=== PATIENT | female | born 1975 | race African-American/Black ===

== ENCOUNTER 2016-04-08 20:40 | Emergency (ER) | payer MEDICAID, OTHER ==
[~2016-04-08] VITALS: Ht 175.3 cm; Wt 129.0 kg
[~2016-04-08 20:40] MED LIST: DOXY100C PO; ENAL5TAB98 PO; GLUCTAB PO; HYDR25TA5 PO; IBUP800T23 PO; LOSA100T PO; POTA10TA8 PO; ULTR50TA5 PO
[2016-04-08 20:41] VITALS: BP 181/104; PULSE 99; RESP 18; TEMP 98.3; O2SAT 100
[2016-04-08 21:11] VITALS: BP 195/116; PULSE 93; RESP 20; O2SAT 98
[2016-04-08 21:14] VITALS: O2SAT 97
[2016-04-08] MEDS ORDERED: SODIUM CHLORIDE 0.9% FLUSH 5 ML FLUSH IVF PRN (21:15)
[2016-04-08 21:41] LABS: AUTOMATED NEUTROPHIL # 3.3 TH/MM3 (1.8-7.7); BASOPHIL % 0.2 % (0.0-2.0); EOSINOPHIL # 0.1 TH/MM3 (0-0.4); EOSINOPHIL % 1.4 % (0.0-4.0); HEMATOCRIT 39.2 % (35.0-46.0); HEMO FLAGS DIFF FINAL; LYMPH % 37.7 % (9.0-44.0); LYMPHOCYTE # 2.4 TH/MM3 (1.0-4.8); MEAN CELL VOLUME 81.6 FL (80.0-100.0); MEAN CORPUSCULAR HGB CONC 34.3 % (32.0-36.0); MONO % 9.3 % (0.0-8.0); NEUT % 51.4 % (16.0-70.0); PLATELET COUNT 239 TH/MM3 (150-450); RED BLOOD COUNT 4.81 MIL/MM3 (4.00-5.30); RED CELL DISTRIBUTION WIDTH 15.6 % (11.6-17.2); WHITE BLOOD COUNT 6.5 TH/MM3 (4.0-11.0)
[2016-04-08 21:42] LABS: BACTERIA, URINE RARE /hpf; BLOOD, URINE NEG (NEG); COMMENT (UR) CULT NOT INDICATED; CULTURE IF INDICATED CULT NOT INDICATED; GLUCOSE,URINE 1000 mg/dL (NEG); KETONE, URINE NEG (NEG); MUCUS URINE FEW /lpf (OCC); NITRITE,URINE NEG (NEG); SQUAMOUS EPITHELIAL CELL URINE <1 /hpf (0-5); URINE COLOR LIGHT-YELLOW (YELLW/STRAW)
[2016-04-08] MEDS ORDERED: MORPHINE SULFATE 4 MG/ML INJ IV PUSH ONE (21:45)
[2016-04-08] MEDS ORDERED: ONDANSETRON HCL 4 MG/2 ML VIAL IVP ONE (21:45)
--- NOTE | 2016-04-08 21:58 | PD ---
HPI Chief Complaint: Abdominal Pain Time Seen by Provider: 21:13 Travel History International Travel<30 days: No Contact w/Intl Traveler<30days: No Traveled to known affect area: No History of Present Illness HPI Morbidly obese 40-year-old female here with complaints of abdominal pain. Patient has had approximately one week of intermittent abdominal pain. States that this is moderate, across the upper abdomen and radiates into the flank. She denies any urinary symptoms, stating she's had previous UTIs and this does not feel similar. She notes nausea, but no vomiting. Bowel movements have been regular. History of appendicitis, status post appendectomy. Denies any history of gastritis, hepatobiliary pathology. She took 3 home test today that were negative and does not play she could be . No abnormal vaginal bleeding or discharge. Symptoms worse with movement. PFSH Past Medical History Anemia: Yes Blood Disorders: No Cancer: No Cardiovascular Problems: Yes (HTN) High Cholesterol: Yes Diabetes: Yes Patient Takes Glucophage: Yes Diminished Hearing: No Endocrine: No Gastrointestinal Disorders: No Genitourinary: No Hypertension: Yes Immune Disorder: No Implanted Vascular Access Dvce: No Musculoskeletal: No Neurologic: No Psychiatric: No Reproductive: No Respiratory: No Immunizations Current: Yes Sickle Cell Disease: Yes (trait) Triglycerides - High: Yes Tetanus Vaccination: < 5 Years Influenza Vaccination: No ?: Not LMP: 03/04/16 : 4 Para: 3 Miscarriage: 1 Tubal Ligation: Yes Past Surgical History Abdominal Surgery: No Appendectomy: Yes Cardiac Surgery: No Ear Surgery: No Endocrine Surgery: No Eye Surgery: No Genitourinary Surgery: No Gynecologic Surgery: Yes (TUBAL) Oral Surgery: No Thoracic Surgery: No Social History Alcohol Use: No Tobacco Use: No Substance Use: No Allergies-Medications (Allergen,Severity, Reaction): Coded Allergies: Cipro (Verified Allergy, Intermediate, Itching, 04/08/16) Reported Meds & Prescriptions Reported Meds & Active Scripts Active Ultram (Tramadol HCl) 50 Mg Tab 50 Mg PO Q4H PRN Reported Potassium Chloride CR (Potassium Chloride) 10 Meq Tab 10 Meq PO BID Losartan (Losartan Potassium) 100 Mg Tab 100 Mg PO DAILY Hydrochlorothiazide 25 Mg Tab 25 Mg PO DAILY Vasotec (Enalapril Maleate) 5 Mg Tab 5 Mg PO DAILY Glucophage XR (Metformin HCl) 500 Mg William 1,000 Mg PO BID With evening meal Review of Systems Except as stated in HPI: all other systems reviewed are Neg Physical Exam Narrative GENERAL: Morbidly obese female in no acute distress SKIN: Warm and dry. HEAD: Normocephalic. EYES: No scleral icterus. No injection or drainage. ENT: Mucous membranes pink and moist. NECK: Supple CARDIOVASCULAR: Regular rate and rhythm. No murmur appreciated. RESPIRATORY: No accessory muscle use. Clear to auscultation. Breath sounds equal bilaterally. GASTROINTESTINAL: Abdomen soft and morbidly obese. Right upper quadrant and epigastric tenderness to palpation without rebound or guarding. No CVA tenderness. MUSCULOSKELETAL: Normal gait NEUROLOGICAL: Awake and alert. Normal speech. PSYCHIATRIC: Appropriate mood and affect; insight and judgment normal. Data Data Last Documented VS Vital Signs Date Time Temp Pulse Resp B/P Pulse Ox O2 Delivery O2 Flow Rate FiO2 04/08/16 21:14 97 Room Air 04/08/16 21:11 20 04/08/16 21:11 93 195/116 04/08/16 20:41 98.3 Orders Complete Blood Count With Diff (04/08/16 21:08) Comprehensive Metabolic Panel (04/08/16 21:08) Lipase (04/08/16 21:08) Urinalysis - C+S If Indicated (04/08/16 21:08) Iv Access Insert/Monitor (04/08/16 21:08) Ecg Monitoring (04/08/16 21:08) Oximetry (04/08/16 21:08) Sodium Chloride 0.9% Flush (Ns Flush) (04/08/16 21:15) Ed Urine Pregnancytest Poc (04/08/16 21:08) Ct Abd/Pel W/O Iv Contrast (04/08/16 21:35) Morphine Inj (Morphine Inj) (04/08/16 21:45) Ondansetron Inj (Zofran Inj) (04/08/16 21:45) Labs Laboratory Tests Test 04/08/16 21:20 White Blood Count 6.5 TH/MM3 Red Blood Count 4.81 MIL/MM3 Hemoglobin 13.5 GM/DL Hematocrit 39.2 % Mean Corpuscular Volume 81.6 FL Mean Corpuscular Hemoglobin 28.0 PG Mean Corpuscular Hemoglobin 34.3 % Concent Red Cell Distribution Width 15.6 % Platelet Count 239 TH/MM3 Mean Platelet Volume 8.7 FL Neutrophils (%) (Auto) 51.4 % Lymphocytes (%) (Auto) 37.7 % Monocytes (%) (Auto) 9.3 % Eosinophils (%) (Auto) 1.4 % Basophils (%) (Auto) 0.2 % Neutrophils # (Auto) 3.3 TH/MM3 Lymphocytes # (Auto) 2.4 TH/MM3 Monocytes # (Auto) 0.6 TH/MM3 Eosinophils # (Auto) 0.1 TH/MM3 Basophils # (Auto) 0.0 TH/MM3 CBC Comment DIFF FINAL Differential Comment Urine Color LIGHT-YELLOW Urine Turbidity CLEAR Urine pH 5.0 Urine Specific [place] 1.022 Urine Protein 30 mg/dL Urine Glucose (UA) 1000 mg/dL Urine Ketones NEG mg/dL Urine Occult Blood NEG Urine Nitrite NEG Urine Bilirubin NEG Urine Urobilinogen LESS THAN 2.0 MG/DL Urine Leukocyte Esterase NEG Urine WBC LESS THAN 1 /hpf Urine Squamous Epithelial <1 /hpf Cells Urine Bacteria RARE /hpf Urine Mucus FEW /lpf Microscopic Urinalysis Comment CULT NOT INDICATED Sodium Level 135 MEQ/L Potassium Level 3.5 MEQ/L Chloride Level 100 MEQ/L Carbon Dioxide Level 25.5 MEQ/L Anion Gap 10 MEQ/L Blood Urea Nitrogen 17 MG/DL Creatinine 1.07 MG/DL Estimat Glomerular Filtration 69 ML/MIN Rate Random Glucose 401 MG/DL Calcium Level 8.8 MG/DL Total Bilirubin 0.3 MG/DL Aspartate Amino Transf 57 U/L (AST/SGOT) Alanine Aminotransferase 110 U/L (ALT/SGPT) Alkaline Phosphatase 172 U/L Total Protein 7.7 GM/DL Albumin 3.3 GM/DL Lipase 158 U/L [facility] Medical Decision Making Medical Screen Exam Complete: Yes Emergency Medical Condition: Yes Medical Record Reviewed: Yes Differential Diagnosis 40-year-old morbidly obese female with history of appendectomy here with one week of intermittent abdominal pain across the upper abdomen, most notably in the right upper quadrant on exam. Differential includes gastritis, pancreatitis , hepatobiliary pathology, bowel obstruction, UTI, ureterolithiasis and less likely . Narrative Course Patient placed on monitor, IV established and blood obtained. Given morphine, Zofran. Urine test negative. EKG shows sinus rhythm with borderline first-degree AV block. CBC, CMP, lipase, urinalysis and CT of the abdomen and pelvis notable for glucose of 401. AST and ALTs slightly elevated at 57, at 110. CT negative. I wonder whether patient's hyperglycemia and poorly controlled diabetes could be contributing to her symptoms. She was given regular insulin here and encouraged follow-up with PCP for further management of her diabetes. Diagnosis Primary Impression: Hyperglycemia Additional Impression: Abdominal pain Qualified Code: R10.10 - Pain of upper abdomen Referrals: Primary Care Physician call for appointment Additional Instructions: Lab work today was unremarkable other than blood glucose in the 400s. CT scan was negative. I suspect that your symptoms at least in part are due to your uncontrolled diabetes. Follow-up with primary care provider for further management of diabetes as instructed. Med/Other Pt SpecificInfo: No Change to Meds Disposition: 01 DISCHARGE HOME Condition: Stable Beena Redmond MD Apr 08, 2016 21:58
[2016-04-08 22:13] LABS: ALKALINE PHOSPHATASE 172 U/L (45-117); ALT (GPT) 110 U/L (10-53); ANION GAP 10 MEQ/L (5-15); AST (GOT) 57 U/L (15-37); BICARBONATE 25.5 MEQ/L (21.0-32.0); BLOOD UREA NITROGEN 17 MG/DL (7-18); CHLORIDE 100 MEQ/L (98-107); GLOMERULAR FILTRATION RATE 69 ML/MIN (>89); POTASSIUM 3.5 MEQ/L (3.5-5.1); SODIUM (NA) 135 MEQ/L (136-145); TOTAL BILIRUBIN ADULT 0.3 MG/DL (0.2-1.0)
--- NOTE | 2016-04-08 22:42 | RADRPT ---
EXAM DATE/TIME: 04/08/2016 22:12 [facility] COMPARISON: CT ABDOMEN & PELVIS W/O CONTRAST, February 04, 2015, 12:09. INDICATIONS : Intermittent low abdominal pain X one week. ORAL CONTRAST: No oral contrast ingested. RADIATION DOSE: 17.00 CTDIvol (mGy) MEDICAL HISTORY : Hypertension. Diabetes mellitus type 2. Cardiovascular disease SURGICAL HISTORY : Appendectomy. Tubal ligation. ENCOUNTER: Initial ACUITY: 1 week PAIN SCALE: 6/10 LOCATION: Bilateral lower abdomen TECHNIQUE: Volumetric scanning of the abdomen and pelvis was performed. Using automated exposure control and ad justment of the mA and/or kV according to patient size, radiation dose was kept as low as reasonably achievable to obtain optimal diagnostic quality images. FINDINGS: The lung bases are clear. There is inhomogeneous appearance to the liver suggesting fatty infiltrati on. Spleen, pancreas and adrenal glands are unremarkable. Right and left kidney is unremarkable. There is a midline hernia containing only fat. Region of the cecum and terminal ileum are unremarkable. In the pelvis, the uterus is prominent. Bladder is unremarkable. There is no free fluid or free air . Review of bone windows reveals mild degenerative changes in the lumbar spine. CONCLUSION: I do not see an etiology for the patient's intermittent abdominal pain. There are no inflammatory ch anges evident. There is no free air. There is no free fluid. Arron Tomlinson MD FACR on April 08, 2016 at 22:32 Board Certified Radiologist. This report was verified electronically.
[2016-04-08 22:58] VITALS: BP 189/104; PULSE 91; RESP 18; TEMP 98.4; O2SAT 98
[2016-04-08] MEDS ORDERED: INSULIN HUMAN REGULAR 1,000 UNITS/10 ML VIAL IV PUSH ONE (23:00)
--- NOTE | 2016-04-09 13:37 | EKG ---
Date Performed: 04/08/2016 Time Performed: 21:24:19 PTAGE: 40 years EKG: Sinus rhythm WITH FIRST DEGREE AV BLOCK POSSIBLE LEFT ATRIAL ENLARGEMENT ABNORMAL ECG Compared to prior tracing n o significant change PREVIOUS TRACING : 04/01/2003 03.11 DOCTOR: Junito Alba Interpretating Date/Time 04/09/2016 13:35:33
== END 2016-04-08 23:44 | disposition home or self-care (01) ==
LOC: NEPE 20:40
DX: E11.65 Type 2 diabetes mellitus with hyperglycemia (principal); R10.10 Upper abdominal pain, unspecified; E66.01 Morbid (severe) obesity due to excess calories; I10 Essential (primary) hypertension; Z79.84 Long term (current) use of oral hypoglycemic drugs; Z79.899 Other long term (current) drug therapy
CPT/HCPCS: 74176; 80053; 81001; 83690; 84703; 85025; 93005; 96374; 96375; 99284; J1815; J2270; J2405

== ENCOUNTER 2016-04-27 20:27 | Emergency (ER) | payer MEDICAID, OTHER ==
[~2016-04-27] VITALS: Ht 172.7 cm; Wt 129.6 kg
[~2016-04-27 20:27] MED LIST changes: -DOXY100C PO; -IBUP800T23 PO
[2016-04-27 20:29] VITALS: BP 216/126; PULSE 98; RESP 16; TEMP 99.4; O2SAT 97
[2016-04-27 21:24] LABS: BLOOD, URINE TRACE (NEG); COMMENT (UR) CULT NOT INDICATED; CULTURE IF INDICATED CULT NOT INDICATED; GLUCOSE,URINE 1000 mg/dL (NEG); HYALINE CAST, URINE 6 /lpf (RARE); KETONE, URINE NEG (NEG); NITRITE,URINE NEG (NEG); PH, URINE 5.5 (5.0-8.5); SQUAMOUS EPITHELIAL CELL URINE 1 /hpf (0-5); URINE COLOR LIGHT-YELLOW (YELLW/STRAW)
--- NOTE | 2016-04-27 22:24 | PD ---
HPI Chief Complaint: [employer] Problem/Complaint Time Seen by Provider: 22:23 Travel History International Travel<30 days: No Contact w/Intl Traveler<30days: No Traveled to known affect area: No History of Present Illness HPI 40-year-old female came to the emergency room for bumps that she noticed in her vaginal area. Also she has been getting these blister-looking eruptions on her bilateral thighs which she was concerned about. Patient says that she is in significant pain because of all these lesions in her genital area. She is sexually active. She has been getting some discharge from the vaginal area as well. Temperature was 99.9 in triage. Patient is a diabetic and takes metformin for her sugar. Patient says that she's been having vaginal discharge on and off for past 9 months. She has had treatment for yeast infection but they seem to keep coming back. PFSH Past Medical History Narrative Medical List of her past medical history as reviewed from the nursing note. Anemia: Yes Blood Disorders: No Cancer: No Cardiovascular Problems: Yes (HTN) High Cholesterol: Yes Diabetes: Yes Diminished Hearing: No Endocrine: No Gastrointestinal Disorders: No Genitourinary: No Hypertension: Yes Immune Disorder: No Implanted Vascular Access Dvce: No Musculoskeletal: No Neurologic: No Psychiatric: No Reproductive: No Respiratory: No Immunizations Current: Yes Sickle Cell Disease: Yes (trait) Triglycerides - High: Yes ?: Not LMP: 04/09/2016 : 4 Para: 3 Miscarriage: 1 Tubal Ligation: Yes Past Surgical History Abdominal Surgery: No Appendectomy: Yes Cardiac Surgery: No Ear Surgery: No Endocrine Surgery: No Eye Surgery: No Genitourinary Surgery: No Gynecologic Surgery: Yes (TUBAL) Oral Surgery: No Thoracic Surgery: No Social History Alcohol Use: No Tobacco Use: No Substance Use: No Allergies-Medications (Allergen,Severity, Reaction): Coded Allergies: Cipro (Verified Allergy, Intermediate, Itching, 04/08/16) Comments List of allergies reviewed from the nursing note. Reported Meds & Prescriptions Reported Meds & Active Scripts Active Diflucan (Fluconazole) 150 Mg Tab 150 Mg PO ONCE Acyclovir 800 Mg Tab 800 Mg PO 5 TIMES A DAY 7 Days Bactrim DS (Sulfamethoxazole-Trimethoprim) 800-160 Mg Tab 1 Tab PO BID Reported Losartan (Losartan Potassium) 100 Mg Tab 100 Mg PO DAILY Vasotec (Enalapril Maleate) 5 Mg Tab 5 Mg PO DAILY Glucophage XR (Metformin HCl) 500 Mg William 1,000 Mg PO BID With evening meal Narrative Medication List of her home medications reviewed from the nursing note. Review of Systems Except as stated in HPI: all other systems reviewed are Neg Physical Exam Narrative GENERAL: Awake, alert, morbidly obese, anxious, moderate distress SKIN: Warm and dry. 3 to did blisters to on the left medial thigh and one on the right medial thigh covered with Band-Aid. Blisters are deflated and no purulent discharge noticed. HEAD: Atraumatic. Normocephalic. EYES: Pupils equal and round. No scleral icterus. No injection or drainage. ENT: No nasal bleeding or discharge. Mucous membranes pink and moist. NECK: Trachea midline. No JVD. CARDIOVASCULAR: Regular rate and rhythm. No murmur appreciated. RESPIRATORY: No accessory muscle use. Clear to auscultation. Breath sounds equal bilaterally. GASTROINTESTINAL: Abdomen soft, non-tender, nondistended. Hepatic and splenic margins not palpable. : Significant papular vesicular lesion over the mons pubis and labia minor. Speculum exam showed vaginal thrush. Swabs were sent. MUSCULOSKELETAL: No obvious deformities. No clubbing. No cyanosis. No edema. NEUROLOGICAL: Awake and alert. No obvious cranial nerve deficits. Motor grossly within normal limits. Normal speech. PSYCHIATRIC: Appropriate mood and affect; insight and judgment normal. Data Data Last Documented VS Vital Signs Date Time Temp Pulse Resp B/P Pulse Ox O2 Delivery O2 Flow Rate FiO2 04/28/16 01:10 86 16 188/93 99 04/28/16 00:00 Room Air 04/27/16 20:29 99.4 Orders Urinalysis - C+S If Indicated (04/27/16 20:50) Complete Blood Count With Diff (04/27/16 22:49) Comprehensive Metabolic Panel (04/27/16 22:49) Lactic Acid Sepsis Protocol (04/27/16 22:49) Blood Culture (04/27/16 22:49) Chest, Single Ap (04/27/16 22:49) Blood Glucose (04/27/16 22:49) Ecg Monitoring (04/27/16 22:49) Iv Access Insert/Monitor (04/27/16 22:49) Oximetry (04/27/16 22:49) Oxygen Administration (04/27/16 22:49) Piperacil-Tazo 4.5 Gm Premix (Zosyn 4.5 (04/27/16 23:00) Vancomycin Inj (Vancomycin Inj) (04/27/16 23:00) Sodium Chlor 0.9% 1000 Ml Inj (Ns 1000 M (04/27/16 23:00) Sodium Chlor 0.9% 1000 Ml Inj (Ns 1000 M (04/27/16 23:00) Sodium Chlor 0.9% 1000 Ml Inj (Ns 1000 M (04/27/16 23:00) Acetaminophen (Tylenol) (04/28/16 00:00) Gc And Chlamydia Pcr (04/27/16 23:58) Wet Prep Profile (04/27/16 23:58) Insulin Human Regular Inj (Novolin R Inj (04/28/16 00:45) Labs Laboratory Tests Test 04/27/16 04/27/16 04/28/16 20:58 23:00 01:00 Urine Color LIGHT-YELLOW Urine Turbidity CLEAR Urine pH 5.5 Urine Specific [place] 1.020 Urine Protein 100 mg/dL Urine Glucose (UA) 1000 mg/dL Urine Ketones NEG mg/dL Urine Occult Blood TRACE Urine Nitrite NEG Urine Bilirubin NEG Urine Urobilinogen LESS THAN 2.0 MG/DL Urine Leukocyte Esterase TRACE Urine RBC 6 /hpf Urine WBC 2 /hpf Urine Squamous Epithelial 1 /hpf Cells Urine Hyaline Casts 6 /lpf Microscopic Urinalysis Comment CULT NOT INDICATED White Blood Count 7.5 TH/MM3 Red Blood Count 4.83 MIL/MM3 Hemoglobin 13.5 GM/DL Hematocrit 40.1 % Mean Corpuscular Volume 83.0 FL Mean Corpuscular Hemoglobin 27.9 PG Mean Corpuscular Hemoglobin 33.6 % Concent Red Cell Distribution Width 15.5 % Platelet Count 233 TH/MM3 Mean Platelet Volume 8.3 FL Neutrophils (%) (Auto) 47.0 % Lymphocytes (%) (Auto) 43.7 % Monocytes (%) (Auto) 8.0 % Eosinophils (%) (Auto) 1.0 % Basophils (%) (Auto) 0.3 % Neutrophils # (Auto) 3.5 TH/MM3 Lymphocytes # (Auto) 3.3 TH/MM3 Monocytes # (Auto) 0.6 TH/MM3 Eosinophils # (Auto) 0.1 TH/MM3 Basophils # (Auto) 0.0 TH/MM3 CBC Comment DIFF FINAL Differential Comment Sodium Level 137 MEQ/L Potassium Level 3.8 MEQ/L Chloride Level 104 MEQ/L Carbon Dioxide Level 27.0 MEQ/L Anion Gap 6 MEQ/L Blood Urea Nitrogen 15 MG/DL Creatinine 1.01 MG/DL Estimat Glomerular Filtration 74 ML/MIN Rate Random Glucose 340 MG/DL Lactic Acid Level 1.4 mmol/L Calcium Level 8.9 MG/DL Total Bilirubin 0.3 MG/DL Aspartate Amino Transf 33 U/L (AST/SGOT) Alanine Aminotransferase 75 U/L (ALT/SGPT) Alkaline Phosphatase 136 U/L Total Protein 7.5 GM/DL Albumin 3.2 GM/DL Clue Cells (Wet Prep) NONE SEEN Vaginal Trichomonas (Wet Prep) NONE SEEN Vaginal Yeast (Wet Prep) PRESENT Chlamydia trachomatis DNA NOT DETECTED (PCR) Neisseria gonorrhoeae DNA NOT DETECTED (PCR) MDM Medical Decision Making Medical Screen Exam Complete: Yes Emergency Medical Condition: Yes Medical Record Reviewed: Yes Differential Diagnosis Disseminated staphylococcal infection, GC, chlamydia, candidiasis, herpes Narrative Course 1 AM patient was initially given antibiotic and fluid as per sepsis protocol. However blood test results of back and white count and lactic acid is within normal limit. I will discharge her home on prescription for herpes genitalis, candidiasis and Bactrim for staph. Patient was given 10 units of insulin subcutaneous for her hyperglycemia. She will be discharged home. Procedures EKG Prior to Arrival: No Diagnosis Primary Impression: Staphylococcal infection of skin Additional Impressions: Herpes genitalis in women Candidiasis of genitalia in female Hyperglycemia Referrals: Primary Care Physician 3 days Additional Instructions: Please take the medications as per the prescription direction. Please follow- up with your primary care. The GC and chlamydia comes back positive then you will be be notified. In which case your partner will need to be treated. Please return to the ER if the condition worsens or any other new concerns. Otherwise follow-up with your primary care. Med/Other Pt SpecificInfo: Prescription(s) given Scripts Fluconazole (Diflucan)150 Mg [id number] Mg PO ONCE #1 TAB Ref 0 Prov:Ngoc Ayala MD 04/28/16 Acyclovir 800 Mg [id number] Mg PO 5 TIMES A DAY 7 Days Ref 0 Prov:Ngoc Ayala MD 04/28/16 Sulfamethoxazole-Trimethoprim (Bactrim DS)800-160 Mg Tab1 Tab PO BID #20 TAB Ref 0 Prov:Ngoc Ayala MD 04/28/16 Disposition: 01 DISCHARGE HOME Condition: Stable Ngoc Ayala MD Apr 27, 2016 22:23
[2016-04-27] MEDS ORDERED: SODIUM CHLOR 0.9% 1000 ML INJ 1,000 ML IV ONE ×3 (23:00)
[2016-04-27] MEDS ORDERED: VANCOMYCIN INJ 1,500 MG in SODIUM CHLORID 0.9% 500 ML INJ 500 ML IV ONE (23:00)
[2016-04-27] MEDS ORDERED: PIPERACIL-TAZO 4.5 GM PREMIX 100 ML IV ONE (23:00)
[2016-04-27 23:22] LABS: AUTOMATED NEUTROPHIL # 3.5 TH/MM3 (1.8-7.7); BASOPHIL % 0.3 % (0.0-2.0); EOSINOPHIL # 0.1 TH/MM3 (0-0.4); HEMATOCRIT 40.1 % (35.0-46.0); HEMO FLAGS DIFF FINAL; LYMPH % 43.7 % (9.0-44.0); LYMPHOCYTE # 3.3 TH/MM3 (1.0-4.8); MEAN CORPUSCULAR HEMOGLOBIN 27.9 PG (27.0-34.0); MEAN CORPUSCULAR HGB CONC 33.6 % (32.0-36.0); PLATELET COUNT 233 TH/MM3 (150-450); RED BLOOD COUNT 4.83 MIL/MM3 (4.00-5.30); RED CELL DISTRIBUTION WIDTH 15.5 % (11.6-17.2); WHITE BLOOD COUNT 7.5 TH/MM3 (4.0-11.0)
--- NOTE | 2016-04-27 23:28 | RADRPT ---
EXAM DATE/TIME: 04/27/2016 23:00 [facility] COMPARISON: No previous studies available for comparison. INDICATIONS : Shortness of breath. MEDICAL HISTORY : Hypertension. Diabetes mellitus type II. Cardiovascular disease. SURGICAL HISTORY : None. ENCOUNTER: Initial ACUITY: 1 day PAIN SCORE: 0/10 LOCATION: Bilateral chest FINDINGS: Portable AP view of the chest demonstrates a normal-sized cardiac silhouette. No effusion, consolidat ion, or pneumothorax is visualized. The bones and soft tissues demonstrate no acute abnormality. CONCLUSION: No acute cardiopulmonary abnormality is identified. Tigre Love MD on April 27, 2016 at 23:26 Board Certified Radiologist. This report was verified electronically.
[2016-04-27 23:43] LABS: ALT (GPT) 75 U/L (10-53); ANION GAP 6 MEQ/L (5-15); AST (GOT) 33 U/L (15-37); BLOOD UREA NITROGEN 15 MG/DL (7-18); CHLORIDE 104 MEQ/L (98-107); GLOMERULAR FILTRATION RATE 74 ML/MIN (>89); POTASSIUM 3.8 MEQ/L (3.5-5.1); SODIUM (NA) 137 MEQ/L (136-145)
[2016-04-27 23:45] LABS: ALKALINE PHOSPHATASE 136 U/L (45-117); TOTAL BILIRUBIN ADULT 0.3 MG/DL (0.2-1.0)
[2016-04-28] MEDS ORDERED: ACETAMINOPHEN 325 MG TAB PO ONE
[2016-04-28] MEDS ORDERED: INSULIN HUMAN REGULAR 1,000 UNITS/10 ML VIAL SQ ONE (00:45)
[2016-04-28] MEDS ORDERED: ACYC800T PO (01:00)
[2016-04-28] MEDS ORDERED: BACT800T5 PO (01:00)
[2016-04-28] MEDS ORDERED: DIFL150T PO (01:00)
[2016-04-28 01:10] VITALS: BP 188/93; PULSE 86; RESP 16; O2SAT 99
[2016-04-28 03:17] LABS: CHLAMYDIA PCR NOT DETECTED (NOT DETECT); NEISSERIA PCR NOT DETECTED (NOT DETECT)
== END 2016-04-28 04:07 | disposition home or self-care (01) ==
LOC: NEPE 20:27 → NEDAMB 04-28 04:07
DX: B37.3 Candidiasis of vulva and vagina (principal); L08.9 Local infection of the skin and subcutaneous tissue, unspecified; I10 Essential (primary) hypertension; E78.00 Pure hypercholesterolemia, unspecified; E11.65 Type 2 diabetes mellitus with hyperglycemia; D57.1 Sickle-cell disease without crisis; Z79.4 Long term (current) use of insulin
CPT/HCPCS: 71010; 80053; 81001; 83605; 85025; 87040; 87210; 87491; 87591; 96361; 96372; 96374; 96375; 99283; J1815; J2543; J3370; J7030; J7040

== ENCOUNTER 2016-07-13 19:40 | Emergency (ER) | payer MEDICAID ==
[~2016-07-13] VITALS: Ht 172.7 cm; Wt 129.0 kg
[~2016-07-13 19:40] MED LIST changes: +ACYC800T PO; +BACT800T5 PO; +DIFL150T PO; -HYDR25TA5 PO; -POTA10TA8 PO; -ULTR50TA5 PO
[2016-07-13 19:43] VITALS: BP 180/82; PULSE 95; RESP 14; TEMP 98.5; O2SAT 99
[2016-07-13 20:36] VITALS: BP 198/120; PULSE 95; RESP 16; O2SAT 99
--- NOTE | 2016-07-13 20:40 | PD ---
Physical Exam Time Seen by Provider: 20:35 Narrative 41 yo F c/o left forearm abscess x4 days. Denies fever, vomiting. Hx HTN. Takes BP medication; last taken one week ago. Out of BP medication. BP elevated in triage. Reports R sided abd pain also couple days. Reports nausea w/o vomiting. Denies fever. Patient stable. Patient seen in triage. Patient awaiting bed placement. Data Data Last Documented VS Vital Signs Date Time Temp Pulse Resp B/P Pulse Ox O2 Delivery O2 Flow Rate FiO2 07/13/16 19:43 98.5 95 14 180/82 99 Room Air MDM Supervised Visit with AC: Radha Garcia Jul 13, 2016 20:39
[2016-07-13] MEDS ORDERED: LOVA40TA PO (23:24)
[2016-07-13] MEDS ORDERED: AMLO10TA2 PO ×2 (23:24→23:51)
[2016-07-13] MEDS ORDERED: HYDR25TA5 PO (23:24)
[2016-07-13] MEDS ORDERED: CLON0.1T PO (23:24)
--- NOTE | 2016-07-13 23:30 | PD ---
HPI Chief Complaint: Bite or Sting Time Seen by Provider: 23:00 Travel History International Travel<30 days: No Contact w/Intl Traveler<30days: No Traveled to known affect area: No History of Present Illness HPI 41-year-old female arrives complaining of pain in the left forearm. Yesterday it was larger and red and swollen and tender. The pain is worse with palpation. She drained some pus however mild persistent swelling today was observed. She also notes she is out of her blood pressure medication and needs a refill. PFSH Past Medical History Anemia: Yes Blood Disorders: No Cancer: No Cardiovascular Problems: Yes (HTN) High Cholesterol: Yes Diabetes: Yes Patient Takes Glucophage: Yes (07/13 am) Diminished Hearing: No Endocrine: No Gastrointestinal Disorders: No Genitourinary: No Hypertension: Yes Immune Disorder: No Implanted Vascular Access Dvce: No Musculoskeletal: No Neurologic: No Psychiatric: No Reproductive: No Respiratory: No Immunizations Current: Yes Sickle Cell Disease: Yes (trait) Triglycerides - High: Yes Tetanus Vaccination: < 5 Years Influenza Vaccination: No ?: Not : 4 Para: 3 Miscarriage: 1 Tubal Ligation: Yes Past Surgical History Abdominal Surgery: No Appendectomy: Yes Cardiac Surgery: No Ear Surgery: No Endocrine Surgery: No Eye Surgery: No Genitourinary Surgery: No Gynecologic Surgery: Yes (TUBAL) Oral Surgery: No Thoracic Surgery: No Social History Alcohol Use: No Tobacco Use: No Substance Use: No Allergies-Medications (Allergen,Severity, Reaction): Coded Allergies: Cipro (Verified Allergy, Intermediate, Itching, 07/13/16) Reported Meds & Prescriptions Reported Meds & Active Scripts Active Diflucan (Fluconazole) 150 Mg Tab 150 Mg PO ONCE Reported Clonidine (Clonidine HCl) 0.1 Mg Tab 0.1 Mg PO BID PRN Hydrochlorothiazide 25 Mg Tab 25 Mg PO DAILY Amlodipine (Amlodipine Besylate) 10 Mg Tab 10 Mg PO DAILY Lovastatin 40 Mg Tab 40 Mg PO DAILY Vasotec (Enalapril Maleate) 5 Mg Tab 5 Mg PO DAILY Glucophage XR (Metformin HCl) 500 Mg William 500 Mg PO BID With evening meal Review of Systems Except as stated in HPI: all other systems reviewed are Neg Physical Exam Narrative GENERAL: 41-year-old female pleasant well-nourished well-developed SKIN: Focused skin assessment warm/dry. Left forearm has a approximate 3 cm focus of tenderness along the midshaft radius distribution. HEAD: Atraumatic. Normocephalic. EYES: Pupils equal and round. No scleral icterus. No injection or drainage. ENT: No nasal bleeding or discharge. Mucous membranes pink and moist. NECK: Trachea midline. No JVD. CARDIOVASCULAR: Regular rate and rhythm. No murmur appreciated. RESPIRATORY: No accessory muscle use. Clear to auscultation. Breath sounds equal bilaterally. GASTROINTESTINAL: Abdomen soft, non-tender, nondistended. Hepatic and splenic margins not palpable. MUSCULOSKELETAL: No obvious deformities. No clubbing. No cyanosis. No edema. NEUROLOGICAL: Awake and alert. No obvious cranial nerve deficits. Motor grossly within normal limits. Normal speech. PSYCHIATRIC: Appropriate mood and affect; insight and judgment normal. Data Data Last Documented VS Vital Signs Date Time Temp Pulse Resp B/P Pulse Ox O2 Delivery O2 Flow Rate FiO2 07/13/16 20:36 95 16 198/120 99 Room Air 07/13/16 19:43 98.5 VS reviewed [facility] Medical Decision Making Medical Screen Exam Complete: Yes Emergency Medical Condition: Yes Medical Record Reviewed: Yes Differential Diagnosis Cellulitis, abscess, medication refill Narrative Course Patient has a history of MRSA-related sepsis. We'll prescribe Bactrim prescription. Hot compresses and twice daily hygiene discussed. Antihypertensive medications refilled. Patient's ready for discharge. Diagnosis Primary Impression: Cellulitis Qualified Code: L03.114 - Cellulitis of left upper extremity Additional Impressions: Hypertension Qualified Code: I10 - Essential hypertension Medication refill Referrals: Primary Care Physician 3 days Additional Instructions: You have a choice when it comes to health care, and we are glad that you chose [facility]. Hopefully, we have met your expectations on today's visit. You are welcome to return to [facility] at any time, as we are committed to meeting the health care needs of our community. Med/Other Pt SpecificInfo: Prescription(s) given Scripts Sulfamethoxazole-Trimethoprim (Bactrim DS)800-160 Mg Tab1 Tab PO BID 7 Days Ref 0 Prov:Jude Guajardo MD 07/13/16 Amlodipine 10 Mg Tab10 Mg PO DAILY #15 TAB Ref 0 Prov:Jude Guajardo MD 07/13/16 Enalapril (Vasotec)5 Mg Tab5 Mg PO DAILY #15 TAB Ref 0 Prov:Jude Guajardo MD 07/13/16 Disposition: 01 DISCHARGE HOME Condition: Stable Jude Guajardo MD Jul 13, 2016 23:30
[2016-07-13] MEDS ORDERED: ENAL5TAB98 PO (23:51)
[2016-07-13] MEDS ORDERED: BACT800T5 PO (23:53)
[2016-07-13 23:55] VITALS: BP 199/89; PULSE 75; RESP 18; O2SAT 99
== END 2016-07-14 01:08 | disposition home or self-care (01) ==
LOC: NEPD 19:40
DX: L03.114 Cellulitis of left upper limb (principal); I10 Essential (primary) hypertension; E11.9 Type 2 diabetes mellitus without complications; Z79.84 Long term (current) use of oral hypoglycemic drugs; Z76.0 Encounter for issue of repeat prescription
CPT/HCPCS: 99283

== ENCOUNTER 2016-10-04 23:03 | Observation (INO) | payer MEDICAID ==
[~2016-10-04] VITALS: Ht 172.7 cm; Wt 122.0 kg
[~2016-10-04 23:03] MED LIST changes: -ACYC800T PO; +AMLO10TA2 PO; +CLON0.1T PO; +HYDR25TA5 PO; -LOSA100T PO; +LOVA40TA PO
[2016-10-04 23:04] VITALS: BP 195/118; PULSE 96; RESP 16; TEMP 98.7; O2SAT 97
[2016-10-05] VITALS (11 sets, daily range): BP systolic 138–185; BP diastolic 74–108; PULSE 64–91; RESP 16–18; TEMP 97.7–97.9; O2SAT 96–99
[2016-10-05] MEDS ORDERED: ASPIRIN 81 MG CHEW TAB PO ONE (01:45)
[2016-10-05] MEDS ORDERED: MORPHINE SULFATE 4 MG/ML INJ IV PUSH ONE (01:45)
[2016-10-05] MEDS ORDERED: NITROGLYCERIN 2% OINT 1 GM PACKET TOP ONE (01:45)
[2016-10-05] MEDS ORDERED: SODIUM CHLORIDE 0.9% FLUSH 10 ML FLUSH IVF PRN (01:45)
[2016-10-05 02:17] LABS: AUTOMATED NEUTROPHIL # 4.3 TH/MM3 (1.8-7.7); BASOPHIL % 0.4 % (0.0-2.0); EOSINOPHIL # 0.1 TH/MM3 (0-0.4); EOSINOPHIL % 1.4 % (0.0-4.0); HEMATOCRIT 37.6 % (35.0-46.0); HEMO FLAGS DIFF FINAL; LYMPH % 42.3 % (9.0-44.0); LYMPHOCYTE # 3.9 TH/MM3 (1.0-4.8); MEAN CELL VOLUME 81.8 FL (80.0-100.0); MEAN CORPUSCULAR HEMOGLOBIN 26.7 PG (27.0-34.0); MEAN CORPUSCULAR HGB CONC 32.6 % (32.0-36.0); MONO % 9.3 % (0.0-8.0); NEUT % 46.6 % (16.0-70.0); PLATELET COUNT 340 TH/MM3 (150-450); RED BLOOD COUNT 4.59 MIL/MM3 (4.00-5.30); RED CELL DISTRIBUTION WIDTH 15.2 % (11.6-17.2); WHITE BLOOD COUNT 9.3 TH/MM3 (4.0-11.0)
--- NOTE | 2016-10-05 02:20 | RADRPT ---
EXAM DATE/TIME: 10/05/2016 01:33 [facility] COMPARISON: CHEST SINGLE AP, April 27, 2016, 23:00. INDICATIONS : Chest pain. MEDICAL HISTORY : Hypertension. Diabetes mellitus type II. Cardiovascular disease. SURGICAL HISTORY : None. ENCOUNTER: Initial ACUITY: 2 days PAIN SCORE: 9/10 LOCATION: Bilateral chest FINDINGS: Single AP view of the chest. The lungs are clear. Cardiomediastinal silhouette within normal limits. No evidence of pleural effusion or pneumothorax. CONCLUSION: No acute cardiopulmonary disease identified. Andrew Matt MD on October 05, 2016 at 2:18 Board Certified Radiologist. This report was verified electronically.
[2016-10-05 02:24] LABS: ALKALINE PHOSPHATASE 192 U/L (45-117); TOTAL BILIRUBIN ADULT 0.2 MG/DL (0.2-1.0)
[2016-10-05] MEDS ORDERED: MORPHINE SULFATE 8 MG/ML INJ IV PUSH ONE (02:30)
[2016-10-05 02:35] LABS: ALT (GPT) 57 U/L (10-53); ANION GAP 7 MEQ/L (5-15); AST (GOT) 39 U/L (15-37); BICARBONATE 28.2 MEQ/L (21.0-32.0); BLOOD UREA NITROGEN 18 MG/DL (7-18); CHLORIDE 98 MEQ/L (98-107); GLOMERULAR FILTRATION RATE 71 ML/MIN (>89); SODIUM (NA) 133 MEQ/L (136-145)
--- NOTE | 2016-10-05 02:47 | PD ---
HPI Chief Complaint: Chest Pain Time Seen by Provider: 01:22 Travel History International Travel<30 days: No Contact w/Intl Traveler<30days: No History of Present Illness HPI This is a 41-year-old female who presents to the emergency department with chest discomfort that's been going on for 3 days feeling like a stabbing pain in the left chest, constant, nonradiating her left arm with shooting pains down her left arm. She says for 1 week she's been sick with a sore throat and nonproductive cough. She went to [facility] and was told she had bronchitis and she started taking azithromycin. She became concerned when she started to have arm pain in the setting of her chest discomfort and she started to get worried about her heart. She does have a history of diabetes. She denies any family history of heart disease and she denies smoking. PFSH Past Medical History Anemia: Yes Blood Disorders: No Cancer: No Cardiovascular Problems: Yes (HTN) High Cholesterol: Yes Diabetes: Yes Patient Takes Glucophage: Yes Diminished Hearing: No Endocrine: No Gastrointestinal Disorders: No Genitourinary: No Hypertension: Yes Immune Disorder: No Implanted Vascular Access Dvce: No Musculoskeletal: No Neurologic: No Psychiatric: No Reproductive: No Respiratory: No Immunizations Current: Yes Sickle Cell Disease: Yes (trait) Triglycerides - High: Yes ?: Not LMP: 6-16-17 : 4 Para: 3 Miscarriage: 1 Tubal Ligation: Yes Past Surgical History Abdominal Surgery: No Appendectomy: Yes Cardiac Surgery: No Ear Surgery: No Endocrine Surgery: No Eye Surgery: No Genitourinary Surgery: No Gynecologic Surgery: Yes (TUBAL) Oral Surgery: No Thoracic Surgery: No Social History Alcohol Use: No Tobacco Use: No Substance Use: No Allergies-Medications (Allergen,Severity, Reaction): Coded Allergies: Cipro (Verified Allergy, Intermediate, Itching, 10/05/16) Reported Meds & Prescriptions Reported Meds & Active Scripts Active Reported Clonidine (Clonidine HCl) 0.1 Mg Tab 0.1 Mg PO BID PRN Lovastatin 40 Mg Tab 40 Mg PO DAILY Glucophage XR (Metformin HCl) 500 Mg William 500 Mg PO BID With evening meal Review of Systems Except as stated in HPI: all other systems reviewed are Neg Physical Exam Narrative GENERAL:Well appearing, no acute distress SKIN: Focused skin assessment warm and dry. HEAD: Atraumatic. Normocephalic. EYES: Pupils equal and round. No injection or drainage. ENT: Moist mucous membranes NECK: Trachea midline. CARDIOVASCULAR: Regular rate and rhythm. No murmur appreciated. RESPIRATORY: Clear to auscultation. Breath sounds equal bilaterally. GASTROINTESTINAL: Abdomen soft, non-tender, nondistended. MUSCULOSKELETAL: No obvious deformities. NEUROLOGICAL: Awake and alert. No obvious cranial nerve deficits. Moving all extremities. PSYCHIATRIC: Appropriate mood and affect; insight and judgment normal. Data Data Last Documented VS Vital Signs Date Time Temp Pulse Resp B/P Pulse Ox O2 Delivery O2 Flow Rate FiO2 10/05/16 02:00 99 Room Air 10/04/16 23:04 98.7 96 16 195/118 Orders Electrocardiogram (10/05/16 01:32) Complete Blood Count With Diff (10/05/16 01:32) Comprehensive Metabolic Panel (10/05/16 01:32) Troponin I (10/05/16 01:32) Chest, Single Ap (10/05/16 01:32) Ecg Monitoring (10/05/16 01:32) Bilateral Bp Monitoring (10/05/16 01:32) Iv Access Insert/Monitor (10/05/16 01:32) Oximetry (10/05/16 01:32) Oxygen Administration (10/05/16 01:32) Aspirin Chew (Aspirin Chew) (10/05/16 01:45) Nitroglycerin 2% Oint (Nitroglycerin 2% (10/05/16 01:45) Sodium Chloride 0.9% Flush (Ns Flush) (10/05/16 01:45) Ed Urine Pregnancytest Poc (10/05/16 01:32) Morphine Inj (Morphine Inj) (10/05/16 02:30) Labs Laboratory Tests Test 10/05/16 01:40 White Blood Count 9.3 TH/MM3 Red Blood Count 4.59 MIL/MM3 Hemoglobin 12.2 GM/DL Hematocrit 37.6 % Mean Corpuscular Volume 81.8 FL Mean Corpuscular Hemoglobin 26.7 PG Mean Corpuscular Hemoglobin 32.6 % Concent Red Cell Distribution Width 15.2 % Platelet Count 340 TH/MM3 Mean Platelet Volume 8.2 FL Neutrophils (%) (Auto) 46.6 % Lymphocytes (%) (Auto) 42.3 % Monocytes (%) (Auto) 9.3 % Eosinophils (%) (Auto) 1.4 % Basophils (%) (Auto) 0.4 % Neutrophils # (Auto) 4.3 TH/MM3 Lymphocytes # (Auto) 3.9 TH/MM3 Monocytes # (Auto) 0.9 TH/MM3 Eosinophils # (Auto) 0.1 TH/MM3 Basophils # (Auto) 0.0 TH/MM3 CBC Comment DIFF FINAL Differential Comment Sodium Level 133 MEQ/L Potassium Level 4.0 MEQ/L Chloride Level 98 MEQ/L Carbon Dioxide Level 28.2 MEQ/L Anion Gap 7 MEQ/L Blood Urea Nitrogen 18 MG/DL Creatinine 1.04 MG/DL Estimat Glomerular Filtration 71 ML/MIN Rate Random Glucose 375 MG/DL Calcium Level 9.5 MG/DL Total Bilirubin 0.2 MG/DL Aspartate Amino Transf 39 U/L (AST/SGOT) Alanine Aminotransferase 57 U/L (ALT/SGPT) Alkaline Phosphatase 192 U/L Troponin I LESS THAN 0.02 NG/ML Total Protein 8.3 GM/DL Albumin 3.1 GM/DL MDM Medical Decision Making Medical Screen Exam Complete: Yes Emergency Medical Condition: Yes Interpretation(s) Afebrile, mild tachycardia, hypertensive EKG: Normal sinus rhythm with no ST changes No leukocytosis Blood sugar is 375 otherwise labs are reassuring Last 24 hours Impressions Chest X-Ray 10/05/16 0132 Signed Impressions: Service Date/Time: , October 05, 2016 01:33 - CONCLUSION: No acute cardiopulmonary disease identified. Andrew Matt MD Differential Diagnosis Bronchitis, acute coronary syndrome, pulmonary embolism, pneumonia Narrative Course This is a 41-year-old female who presents to the emergency department with chest discomfort in the setting of symptoms consistent with bronchitis earlier in the week. She does of radiation to her arm which would be atypical of bronchitis. She does have a history of diabetes. EKG was obtained which was reassuring and nonischemic. She is placed on a monitor and an IV was established. She is on a markedly hypertensive. She was still nitroglycerin. Labs were reassuring. I think given the patient's marked hypertension, poorly controlled diabetes and obesity it's reasonable to observe her in the chest pain center for serial cardiac enzymes and cardiology evaluation. Diagnosis Primary Impression: Chest pain Qualified Code: R07.9 - Chest pain, unspecified type Admitting Information Admitting Physician Requests: Observation Tamiko Herrmann MD Oct 05, 2016 02:47
[2016-10-05] MEDS ORDERED: SODIUM CHLORIDE 0.9% FLUSH 10 ML FLUSH IV FLUSH PRN (03:00)
[2016-10-05] MEDS: SODIUM CHLORIDE 0.9% FLUSH 10 ML FLUSH IV FLUSH SCH ×2 (03:10→07:39)
[2016-10-05] MEDS ORDERED: INSULIN HUMAN REGULAR 1,000 UNITS/10 ML VIAL IV PUSH ONE (05:00)
[2016-10-05] MEDS ORDERED: SODIUM CHLOR 0.9% 1000 ML INJ 1,000 ML IV ONE (05:00)
--- NOTE | 2016-10-05 08:23 | HHI.HP ---
HPI Primary Care Physician Non-Staff- MEGAN Levin Chief Complaint Chest pain History of Present Illness 41-year-old female history of diabetes and hypertension presents to the emergency room for further evaluation of chest pain. Onset yesterday afternoon at 1:30 PM. Location left inframammary area. Radiation to left shoulder, left arm, and left-sided neck. No associated symptoms. Duration 3 3 hours. No known precipitating or relieving factors. Endorses similar left neck, shoulder , and arm pain in the past denying previous chest pain accompanied with left sided pain. Nonexertional component. Review of Systems General: No fatigue,weakness, fever, chills, recent illness, or change in appetite HEENT: No IBRAHIM, no nasal congestion or drainage, no dysphasia, reports vision changes stating "it's hard for me to focus sometimes." CV: As stated above. Denies any current chest pain or pressure. No palpitations or dizziness RESP: Recent antibiotics for bronchitis one week ago. Reports cough continues, but improving. No hemoptysis. No history of asthma. GI: No nausea, vomiting, bowel changes, diarrhea, constipation, pain, distention , melena, or blood in the stool. : No dysuria, urgency, frequency, hematuria, or history of kidney stones PERMIT COORDINATOR: Last menses 09/08/16, denies chance of , history of tubal ligation EXT: No lower leg edema, no paraesthesias MS: No discomfort or change in ROM NEURO: No difficulty with balance, LOC, motor/sensory deficits PSYCH: No anxiety, depression, or situational stress SKIN: No rashes, no concerning lesions Past Family Social History Allergies: Coded Allergies: Cipro (Verified Allergy, Intermediate, Itching, 10/05/16) Past Medical History Diabetes and hypertension Past Surgical History Tubal ligation Reported Medications Active Reported Clonidine (Clonidine HCl) 0.1 Mg Tab 0.1 Mg PO BID PRN Lovastatin 40 Mg Tab 40 Mg PO DAILY Glucophage XR (Metformin HCl) 500 Mg William 500 Mg PO BID With evening meal BP med (name unknown)-reports she ran out of medications weeks ago Active Ordered Medications Current Medications Medications (Trade) Dose Ordered Sig/Paras Route Start Time Stop Time Status Last Admin (NS Flush) 2 ml UNSCH PRN IVF 10/05/16 01:45 (NS Flush) 2 ml UNSCH PRN IV FLUSH 10/05/16 03:00 (NS Flush) 2 ml BID IV FLUSH 10/05/16 03:00 10/05/16 07:39 Family History Noncontributory for early onset cardiovascular disease. Social History Known diabetes and hypertension. No known hyperlipidemiais on appropriate statin therapy with her known diabetes. No personal known coronary artery disease. Lifelong nonsmoker. Denies any alcohol or illegal drug use. . Unemployed. Past cardiac testing None Physical Exam Vital Signs Vital Signs Date Time Temp Pulse Resp B/P Pulse Ox O2 Delivery O2 Flow Rate FiO2 10/05/16 08:00 96 21 10/05/16 07:05 84 17 98 Room Air 10/05/16 07:05 97.9 86 17 147/89 98 Room Air 10/05/16 06:04 91 16 138/74 98 Room Air 10/05/16 04:19 16 10/05/16 04:00 64 16 138/77 99 Room Air 10/05/16 03:11 169/87 162/84 10/05/16 03:10 89 16 169/87 97 Room Air 10/05/16 02:53 98 10/05/16 02:00 99 Room Air 10/04/16 23:04 98.7 96 16 195/118 97 Room Air Physical Exam GENERAL: Alert WN, WD, NAD, obese female HEAD: NC, AT EYES: Sclera clear NECK: Supple, no masses, trachea midline CV: RRR, without murmur, rub, gallop, no JVD, S1-S2 no S3-S4. RESP: Clear lungs throughout bilateral, no crackles, wheeze, rhonchi, symmetrical chest rise, nonlabored, able to speak in full sentences ABD: Soft, NT, ND, no masses, positive bowel tones, obese EXT: Pulses +24, no dependent edema MS: Normal tone 4 extremities, nontender, no obvious deformities, full range of motion NEURO: CN II through CN XII grossly intact, motor strength 5/5, gait WNL PSYCH: A+O 3, flat affect, appropriate speech, appropriate mood and affect, insight and judgment SKIN: Normal turgor, normal texture, no lesions, no rashes Laboratory Laboratory Tests Test 10/05/16 10/05/16 10/05/16 01:40 04:30 07:40 White Blood Count 9.3 Red Blood Count 4.59 Hemoglobin 12.2 Hematocrit 37.6 Mean Corpuscular Volume 81.8 Mean Corpuscular Hemoglobin 26.7 Mean Corpuscular Hemoglobin 32.6 Concent Red Cell Distribution Width 15.2 Platelet Count 340 Mean Platelet Volume 8.2 Neutrophils (%) (Auto) 46.6 Lymphocytes (%) (Auto) 42.3 Monocytes (%) (Auto) 9.3 Eosinophils (%) (Auto) 1.4 Basophils (%) (Auto) 0.4 Neutrophils # (Auto) 4.3 Lymphocytes # (Auto) 3.9 Monocytes # (Auto) 0.9 Eosinophils # (Auto) 0.1 Basophils # (Auto) 0.0 CBC Comment DIFF FINAL Differential Comment Sodium Level 133 Potassium Level 4.0 Chloride Level 98 Carbon Dioxide Level 28.2 Anion Gap 7 Blood Urea Nitrogen 18 Creatinine 1.04 Estimat Glomerular Filtration 71 Rate Random Glucose 375 Calcium Level 9.5 Total Bilirubin 0.2 Aspartate Amino Transf 39 (AST/SGOT) Alanine Aminotransferase 57 (ALT/SGPT) Alkaline Phosphatase 192 Troponin I LESS THAN 0.02 LESS THAN 0.02 LESS THAN 0.02 Total Protein 8.3 Albumin 3.1 Result Diagram: 10/05/16 0140 10/05/16 0140 Imaging Last Impressions Chest X-Ray 10/05/16 0132 Signed Impressions: Service Date/Time: September 01:33 - CONCLUSION: No acute cardiopulmonary disease identified. Andrew Matt MD Myocardial Perfusion Scan Nuc Med 10/05/16 0000 Signed Impressions: Service Date/Time: September 09:15 - CONCLUSION: Limited study due to significant attenuation artifacts and slight ischemia in low inferoapical wall is difficult to exclude. RISK CATEGORY: Low (<1%% Annual Mortality Rate) Jam Colbert MD Course EKG Normal sinus rhythm, normal axis, no ST or T-segment changes Assessment and Plan Assessment and Plan #1 Atypical chest painadmitted to chest pain center. Ruled out with serial EKGs and cardiac enzymes. Seen and evaluated by Dr. Dylan Van. Proceed with chemical stress test. If unremarkable, will later discharged this afternoon. #2 Diabetescontinue metformin upon discharge, continue statin therapy. Encourage weight reduction and increasing her daily activity. Instructed to keep all PCP appointment and to have baseline eye exam. #3 Hypertensionamlodipine 5 mg 1 dose. Amlodipine 5 mg daily prescription given at discharge. Instructed to keep blood pressure log and take with her to her next PCP appointment Saira Thompson Oct 05, 2016 08:23
[2016-10-05] MEDS ORDERED: DEXTROSE 50% IN WATER 50 ML VIAL(D50) IV PRN (08:30)
[2016-10-05] MEDS ORDERED: GLUCAGON 1 MG/ML VIAL OTHER PRN (08:30)
[2016-10-05] MEDS ORDERED: ONDANSETRON HCL 4 MG/2 ML VIAL IV PRN (08:30)
[2016-10-05] MEDS ORDERED: ACETAMINOPHEN 500 MG CPLT PO PRN (08:30)
[2016-10-05] MEDS ORDERED: NITROGLYCERIN 0.4 MG SL 25 TABS/BTL SL PRN (08:30)
[2016-10-05] MEDS ORDERED: REGADENOSON INJ 0.4 MG/5 ML SYR ONE (09:42)
[2016-10-05] MEDS ORDERED: INSULIN ASPART SUPPLEMENTAL SCALE SQ SCH (11:00)
--- NOTE | 2016-10-05 11:30 | RADRPT ---
EXAM DATE/TIME: 10/05/2016 09:15 [facility] COMPARISON: CHEST SINGLE AP, October 05, 2016, 1:33. INDICATIONS : Mid chest pain for three days. Angina. DOSE: 35.0 mCi Tc99m Myoview at stress. 11.0 mCi Tc99m Myoview at rest. 0.4 mg Lexiscan STRESS SYMPTOMS: None. EJECTION FRACTION: 52% MEDICAL HISTORY : Diabetes mellitus type 2. Hypertension. SURGICAL HISTORY : Tubal ligation. Appendectomy. ENCOUNTER: Initial ACUITY: 3 days PAIN SCALE: 6/10 LOCATION: Midsternal chest TECHNIQUE: The patient underwent pharmacologic stress with infusion of prescribed dose. Continuous ECG tracing was monitored during stress. Gated SPECT imaging was performed after stress and conventional SPECT p erformed at rest. The examination was performed on a SPECT/CT scanner, both attenuation and non-naresh ected datasets were reviewed. FINDINGS: DISTRIBUTION: The maximum perfused segment at stress is in the septal wall. PERFUSION STUDY: The pattern of perfusion at stress demonstrates a breast attenuation artifact overlapping the anterio r wall. On the nonattenuation there is a slight area of reduction in perfusion in the low inferoapica l wall which demonstrates resting perfusion possibly related to diaphragmatic attenuation. GATED STUDY: There is intact wall motion and thickening without hypokinetic or dyskinetic segments. CONCLUSION: Limited study due to significant attenuation artifacts and slight ischemia in low inferoapical wall i s difficult to exclude. RISK CATEGORY: Low (<1% Annual Mortality Rate) Jam Colbert MD on October 05, 2016 at 11:26 Board Certified Radiologist. This report was verified electronically.
--- NOTE | 2016-10-05 11:37 | HHI.DCPOC ---
Discharge Care Plan Diagnosis: (1) Atypical chest pain (2) Type 2 diabetes mellitus Goals to Promote Your Health * To prevent worsening of your condition and complications * To maintain your health at the optimal level Directions to Meet Your Goals Take your medications as prescribed Follow your dietary instruction Follow activity as directed Keep your appointments as scheduled Take your immunizations and boosters as scheduled If your symptoms worsen call your PCP, if no PCP go to Urgent Care Center or Emergency Room Smoking is Dangerous to Your Health. Avoid second hand smoke Call the 24-hour hour crisis hotline for domestic abuse at Saira Thompson Oct 05, 2016 11:37
[2016-10-05] MEDS ORDERED: PRAVASTATIN SOD 40 MG TAB PO SCH (12:00)
[2016-10-05] MEDS ORDERED: amLODIPine BESYLATE 5 MG TAB PO ONE (12:00)
[2016-10-05] MEDS ORDERED: metFORMIN HCL 500 MG TAB PO SCH (12:00)
[2016-10-05] MEDS ORDERED: AMLO5TAB2 PO (12:38)
--- NOTE | 2016-10-05 13:25 | EKG ---
Date Performed: 10/05/2016 Time Performed: 01:26:01 PTAGE: 41 years EKG: Sinus rhythm NORMAL ECG NO PREVIOUS TRACING DOCTOR: Dylan Van Interpretating Date/Time 10/05/2016 13:15:07
--- NOTE | 2016-10-05 13:25 | EKG ---
Date Performed: 10/05/2016 Time Performed: 04:41:10 PTAGE: 41 years EKG: Sinus rhythm NORMAL ECG INTERPRETATION BASED ON A DEFAULT AGE OF 42 YEARS NO PREVIOUS TRACING DOCTOR: Dylan Van Interpretating Date/Time 10/05/2016 13:14:18
--- NOTE | 2016-10-05 13:25 | EKG ---
Date Performed: 10/05/2016 Time Performed: 07:45:36 PTAGE: 41 years EKG: Sinus rhythm NORMAL ECG PREVIOUS TRACING : 10/05/2016 04.41 Since previous tracing, no significant change noted DOCTOR: Dylan Van Interpretating Date/Time 10/05/2016 13:18:36
--- NOTE | 2016-10-05 13:28 | TR ---
Date Performed: 10/05/2016 Time Performed: 09:55:54 DOCTOR: Dylan Van DRUG LIST: CLINICAL HISTORY: CHEST PAIN REASON FOR TEST: REASON FOR ENDING: OBSERVATION: CONCLUSION: Lexiscan stress test was performed under standard four minute protocol. Radionuclid e was injected one minute prior to ending the test. No electrocardiographic abormalities were present to suggest ischemia. Nuclear imaging and interpretation are pending. COMMENTS:
[2016-10-06] MEDS ORDERED: ASPIRIN 325 MG TAB PO SCH (09:00)
--- NOTE | 2016-10-06 15:38 | EKG ---
Date Performed: 10/05/2016 Time Performed: 11:36:27 PTAGE: 41 years EKG: Sinus rhythm NORMAL ECG PREVIOUS TRACING : 10/05/2016 07.45 Since previous tracing, no significant change noted DOCTOR: Dylan Van Interpretating Date/Time 10/06/2016 15:38:09
== END 2016-10-05 16:12 | disposition home or self-care (01) ==
LOC: NEPE 23:03 → NEDA 10-05 02:45 → NEDH 10-05 06:25 → NEPGCP 10-05 09:55
PROVIDERS: ADMIT Internal Medicine Cardiovascular Disease; ATTEND Internal Medicine Cardiovascular Disease
DX: R07.89 Other chest pain (principal); R00.0 Tachycardia, unspecified; M54.2 Cervicalgia; M25.519 Pain in unspecified shoulder; M79.603 Pain in arm, unspecified; J02.9 Acute pharyngitis, unspecified; R05 Cough; I10 Essential (primary) hypertension; E11.9 Type 2 diabetes mellitus without complications; E78.00 Pure hypercholesterolemia, unspecified; D57.1 Sickle-cell disease without crisis; Z79.84 Long term (current) use of oral hypoglycemic drugs; Z79.899 Other long term (current) drug therapy; I20.9 Angina pectoris, unspecified
CPT/HCPCS: 71010; 78452; 80053; 82948; 84484; 84703; 85025; 93005; 93017; 99285; A9502; G0378; J1815; J2270; J2785; J7030

== ENCOUNTER 2017-04-05 07:16 | Emergency (ER) | payer SELFPAY ==
[~2017-04-05] VITALS: Ht 172.7 cm; Wt 122.0 kg
[~2017-04-05 07:16] MED LIST changes: -AMLO10TA2 PO; +AMLO5TAB2 PO; -BACT800T5 PO; -DIFL150T PO; -ENAL5TAB98 PO; -HYDR25TA5 PO
[2017-04-05 07:17] VITALS: BP 218/131; PULSE 100; RESP 20; TEMP 99.2; O2SAT 97
[2017-04-05 07:23] VITALS: BP 158/115
[2017-04-05] MEDS ORDERED: AMLO10TA2 PO (07:49)
[2017-04-05 07:51] VITALS: BP_SYST 203; BP_SYST 3; BP_DIAS 97; PULSE 95; RESP 18; O2SAT 98
--- NOTE | 2017-04-05 08:06 | PD ---
HPI Chief Complaint: Pain: Acute or Chronic Time Seen by Provider: 08:05 Travel History International Travel<30 days: No Contact w/Intl Traveler<30days: No Traveled to known affect area: No History of Present Illness HPI 41-year-old female came to the emergency room with history of left leg pain after she fell. Patient says she tripped and stumbled over 7 stairs. Leg went under her. Since then her left leg below the knee ankle and foot has been hurting. She says it hurts every time she tries to walk on it. Vital signs are stable. Patient denies hitting her head when she fell. PFSH Past Medical History Narrative Medical List of her past medical, surgical, social and family history is reviewed from the nursing note. Anemia: Yes Blood Disorders: No Heart Rhythm Problems: No Cancer: No Cardiac Catheterization: No Cardiovascular Problems: Yes (HTN) High Cholesterol: Yes Congestive Heart Failure: No Diabetes: Yes Patient Takes Glucophage: Yes Diminished Hearing: No Endocrine: No Gastrointestinal Disorders: No Genitourinary: No Hypertension: Yes Immune Disorder: No Implanted Vascular Access Dvce: No Musculoskeletal: No Neurologic: No Psychiatric: No Reproductive: No Respiratory: No Immunizations Current: Yes Sickle Cell Disease: Yes (trait) Triglycerides - High: Yes Tetanus Vaccination: < 5 Years Influenza Vaccination: No ?: Not LMP: 04/05/17 : 4 Para: 3 Miscarriage: 1 Tubal Ligation: Yes Past Surgical History Abdominal Surgery: No Appendectomy: Yes Cardiac Surgery: No Coronary Artery Bypass Graft: No Ear Surgery: No Endocrine Surgery: No Eye Surgery: No Genitourinary Surgery: No Gynecologic Surgery: Yes (TUBAL) Oral Surgery: No Thoracic Surgery: No Family History Family Myocardial Infarction: Yes (UNCLE) Social History Alcohol Use: No Tobacco Use: No Substance Use: No Allergies-Medications (Allergen,Severity, Reaction): Coded Allergies: ciprofloxacin (Unverified Allergy, Intermediate, Itching, 04/05/17) Comments List of her allergies reviewed from the nursing note. Reported Meds & Prescriptions Reported Meds & Active Scripts Active Ibuprofen 400 Mg Tab 400 Mg PO Q6H PRN Reported Amlodipine (Amlodipine Besylate) 10 Mg Tab 10 Mg PO DAILY Clonidine (Clonidine HCl) 0.1 Mg Tab 0.1 Mg PO BID PRN Lovastatin 40 Mg Tab 40 Mg PO DAILY Glucophage XR (Metformin HCl) 500 Mg William 500 Mg PO BID With evening meal Narrative Medication List of her home medications reviewed from the nursing note. Review of Systems Except as stated in HPI: all other systems reviewed are Neg Musculoskeletal: Positive: Pain Physical Exam Narrative GENERAL: Awake, alert, morbidly obese SKIN: Focused skin assessment warm/dry. HEAD: Atraumatic. Normocephalic. EYES: Pupils equal and round. No scleral icterus. No injection or drainage. ENT: No nasal bleeding or discharge. Mucous membranes pink and moist. NECK: Trachea midline. No JVD. CARDIOVASCULAR: Regular rate and rhythm. No murmur appreciated. RESPIRATORY: No accessory muscle use. Clear to auscultation. Breath sounds equal bilaterally. GASTROINTESTINAL: Abdomen soft, non-tender, nondistended. Hepatic and splenic margins not palpable. MUSCULOSKELETAL: No obvious deformities. No clubbing. No cyanosis. No edema. Tenderness on palpation of left mid gonzalez and ankle. NEUROLOGICAL: Awake and alert. No obvious cranial nerve deficits. Motor grossly within normal limits. Normal speech. PSYCHIATRIC: Appropriate mood and affect; insight and judgment normal. Data Data Last Documented VS Vital Signs Date Time Temp Pulse Resp B/P (MAP) Pulse Ox O2 Delivery O2 Flow Rate FiO2 04/05/17 10:02 04/05/17 07:51 95 18 98 Room Air 04/05/17 07:17 99.2 Orders Orders Ibuprofen (Motrin) (04/05/17 08:15) Tibia/Fibula (Ap/Lat) (04/05/17 ) Ankle, Complete ([id number]) (04/05/17 ) Foot, Complete (Qva4dmg) (04/05/17 ) Crutches (04/05/17 ) Ed Discharge Order (04/05/17 09:24) MDM Medical Decision Making Medical Screen Exam Complete: Yes Emergency Medical Condition: Yes Medical Record Reviewed: Yes Differential Diagnosis Tib-fib fracture, ankle fracture, foot fracture Narrative Course 9:29 AM chest x-ray report is back and negative for fracture. Patient was medicated for pain. I'll discharge her home on crutches and Motrin prescription. Procedures EKG Prior to Arrival: No Diagnosis Primary Impression: Fall Qualified Codes: W19.XXXA - Unspecified fall, initial encounter Additional Impression: Contusion of leg, left Qualified Codes: S80.12XA - Contusion of left lower leg, initial encounter Referrals: Primary Care Physician Additional Instructions: Use crutches for pain relief mostly. Apply ice to the area. Take the medication has been prescribed to you for pain relief. Keep the leg elevated. Follow-up with your primary care. Med/Other Pt SpecificInfo: Prescription(s) given Scripts Ibuprofen (Ibuprofen) 400 Mg Tab 400 MG PO Q6H Y for PAIN SCALE 1 TO 4, #20 TAB 0 Refills Prov: Ngoc Ayala MD 04/05/17 Disposition: 01 DISCHARGE HOME Condition: Stable Ngoc Ayala MD Apr 05, 2017 08:06
[2017-04-05] MEDS ORDERED: IBUPROFEN 600 MG TAB PO ONE (08:15)
--- NOTE | 2017-04-05 09:03 | RADRPT ---
EXAM DATE/TIME: 04/05/2017 08:20 [facility] COMPARISON: No previous studies available for comparison. INDICATIONS : Fall on stairs. Impact to left tibia. MEDICAL HISTORY : Hypertension. Diabetes mellitus type II. Cardiovascular disease. SURGICAL HISTORY : None. ENCOUNTER: Initial ACUITY: 1 day PAIN SCORE: 6/10 LOCATION: Left tibia FINDINGS: Three view examination of the left foot demonstrates no soft tissue swelling, dislocation, or fractur e. The tarsal bones appear intact. The interphalangeal and metatarsophalangeal joints are intact. The calcaneus is intact. Bony mineralization is normal. CONCLUSION: No acute fracture. Jewel Rodrigues MD on April 05, 2017 at 9:01 Board Certified Radiologist. This report was verified electronically.
--- NOTE | 2017-04-05 09:04 | RADRPT ---
EXAM DATE/TIME: 04/05/2017 08:25 [facility] COMPARISON: No previous studies available for comparison. INDICATIONS : Fall on stairs. Impact to left tibia. MEDICAL HISTORY : Hypertension. Diabetes mellitus type II. Cardiovascular disease. SURGICAL HISTORY : None. ENCOUNTER: Initial ACUITY: 1 day PAIN SCORE: 6/10 LOCATION: Left tibia FINDINGS: Two view examination of the left tibia demonstrates no evidence of fracture or dislocation. Bony min eralization is normal. The soft tissue structures are intact. CONCLUSION: No acute fracture. Jewel Rodrigues MD on April 05, 2017 at 9:02 Board Certified Radiologist. This report was verified electronically.
--- NOTE | 2017-04-05 09:04 | RADRPT ---
EXAM DATE/TIME: 04/05/2017 08:22 [place] COMPARISON: No previous studies available for comparison. INDICATIONS : Fall on stairs. Impact to left tibia. MEDICAL HISTORY : Hypertension. Diabetes mellitus type II. Cardiovascular disease. SURGICAL HISTORY : None. ENCOUNTER: Initial ACUITY: 1 day PAIN SCORE: 6/10 LOCATION: Left tibia FINDINGS: Three view exam was performed of the left ankle. The bony structures are in normal alignment. No ev idence of fracture, dislocation. Minimal soft tissue swelling. The ankle mortise is intact. No radi opaque foreign bodies are seen. Bony mineralization is normal. CONCLUSION: Soft tissue swelling without fracture. Jewel Rodrigues MD on April 05, 2017 at 9:01 Board Certified Radiologist. This report was verified electronically.
[2017-04-05] MEDS ORDERED: IBUP1TAB5 PO (09:26)
== END 2017-04-05 10:02 | disposition home or self-care (01) ==
LOC: NEPE 07:16
DX: S80.12XA Contusion of left lower leg, initial encounter (principal); W10.9XXA Fall (on) (from) unspecified stairs and steps, initial encounter; I10 Essential (primary) hypertension; E78.00 Pure hypercholesterolemia, unspecified; E11.9 Type 2 diabetes mellitus without complications; E66.01 Morbid (severe) obesity due to excess calories
CPT/HCPCS: 73590; 73610; 73630; 99284; E0113